=== PATIENT | male | born 1995 | race Two or more races ===

== ENCOUNTER 2017-12-12 06:40 | Emergency (ER) | payer SELFPAY ==
[~2017-12-12] VITALS: Ht 170.2 cm; Wt 78.0 kg
[2017-12-12 11:37] LABS: AMPHETAMINE SCREEN, URINE Negative (Negative); BARBITURATE SCREEN, URINE Negative (Negative); BENZODIAZEPINE SCREEN, URINE Positive (Negative); CANNABINOID SCREEN, URINE Positive (Negative); COCAINE SCREEN, URINE Negative (Negative); METHADONE SCREEN, URINE Negative (Negative); OPIATE SCREEN, URINE Negative (Negative)
[2017-12-12 13:28] VITALS: BP 115/55
== END 2017-12-12 13:48 | disposition home or self-care (01) ==
LOC: ED 13:41
DX: F10.129 Alcohol abuse with intoxication, unspecified (principal); F12.129 Cannabis abuse with intoxication, unspecified
CPT/HCPCS: 36415; 80307; 93005; 99285